=== PATIENT | male | born 1980 ===

== ENCOUNTER 2024-03-13 13:17 | Emergency (ER) | payer OTHER, BC, SELFPAY ==
[2024-03-13 13:24] VITALS: BP 136/86; PULSE 88; RESP 19; TEMP 36.6; O2SAT 98; BMI 26.3
--- NOTE | 2024-03-13 13:25 | ED.ANIMALBIT ---
HPI - Animal Bite General Chief Complaint: Animal Bite Stated Complaint: dog bite at work Time Seen by Provider: 03/13/24 15:46 Source: patient Mode of arrival: ambulatory Limitations: no limitations History of Present Illness ED Provider: MIGUEL MORENO PA-C HPI narrative: 43 year old gsrvx-kfzv-vakdcqas male with no significant pmhx presents to the ED today for evaluation of dog bite to his right hand sustained yesterday. 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 While at and individuals home yesterday, the individuals dog ran up to him and bit his right hand. The individual states that the dog is up-to-date on vaccinations however patient is not sure if that is true. He was evaluated at urgent care today for bite. There, his tetanus was updated and he was started on antibiotics (Augmentin). He was advised to come to the emergency department today to receive his rabies series. At present, he does not endorse any pain to his right hand. Denies fevers, chills, numbness/tingling/weakness of the right hand. No further complaints. Related Data Allergies Allergy/AdvReac Type Severity Reaction Status Date / Time No Known Allergies Allergy Verified 03/13/24 13:26 Review of Systems Review of Systems: Yes all other systems are reviewed and are negative PMFSH Past Medical History Attestation statement: The following information was validated with the patient. Source: old records reviewed and nursing notes reviewed Social History Social History Advance Directives: No Advance Directives Information Provided: No Do you have a plan to hurt others: No Plan Physical Exam ED Vital Signs: Vital Signs - 24 hr 03/13/24 13:24 03/13/24 17:09 Temperature 98 F 97.9 F Pulse Rate 88 84 Respiratory Rate 19 18 Blood Pressure 136/86 134/78 Pulse Oximetry 98 98 Oxygen Delivery Method Room Air BMI result Body Mass Index 26.3 Vital signs stable General: Well appearing, in no acute distress. Skin: Warm, dry, intact. No rashes or lesions. Head: Normocephalic, atraumatic. EENT: Hearing is intact b/l. Conjunctiva clear. PERRLA. EOM intact. Moist mucous membranes.? Cardiac: Chest wall symmetric. RRR Lungs: Normal respiratory effort without accessory muscle use. CTA bilaterally Back: No midline spinous or paraspinal tenderness. No step off deformity. Ext: +small puncture wound noted to the ulnar aspect of the right hand. There is no surrounding erythema. No drainage. No warmth. No streaking. No tenderness to palpation over the puncture wound. He has full ROM intact to right wrist and all digits on right hand. 2+ radial and ulnar pulse intact. Neuro: AOx3. Normal speech. Ambulating with steady gait. Psych: Appropriate mood and affect. Responds appropriately to questions. Course Course Course Narrative: This is a rapid medical exam. Deferred additional HPI, ROS, PE to primary provider. 43 yo male with history of anxiety, right hand dominant here with dog bite to right hand which occurred yesterday. Did receive tetanus immunization, and has been taking augmentin since yesterday. Sent from for rabies series. GUY Lugo APRN Medications Administered Discontinued Medications Generic Name Dose Route Start Last Admin Trade Name Freq PRN Reason Stop Dose Admin Rabies Immune Globulin 1,480 unit 03/13/24 15:46 03/13/24 16:38 Rabies Immune Globulin/Pf 900 Unit/3 Ml Vial 20 unit/kg (1480 unit) 03/13/24 15:47 1,480 unit IM Administration ONCE ONE Rabies Vaccine 1 ml 03/13/24 15:46 03/13/24 16:36 Rabies Vaccine (Pcec)/Pf 1 Ml Vial IM 03/13/24 15:47 1 ml .ONCE ONE Administration Medical Decision Making Medical Decision Making [facility] Narrative: 43 year old hzaos-pbhe-cpprhevc male with no significant pmhx presents to the ED today for evaluation of dog bite to his right hand sustained yesterday. Vital signs stable. Afebrile. He is nontoxic-appearing and in no acute distress. On exam, there is a small puncture wound noted to the ulnar aspect of the right hand. There is no surrounding erythema. No drainage. No warmth. No streaking. No tenderness to palpation over the puncture wound. He has full ROM intact to right wrist and all digits on right hand. 2+ radial and ulnar pulse intact. Differential diagnosis includes dog bite, laceration, abrasion. I do not have concern for retained foreign body, fracture, septic joint, lymphangitis, abscess. X-rays are not warranted at this time. The puncture wound was adequately cleaned with saline and iodine. He received his rabies vaccine and immunoglobulin today. He will be following up with the infusion center outpatient for subsequent vaccines. ED supervisor harvesting informed and infusion center will be notified. I informed patient to continue Augmentin. His tetanus was updated today at urgent care. Patient has remained stable throughout ED visit today. Discussed worrisome signs and symptoms and when to return to the ED. All questions answered at this time. Patient is agreeable with disposition and stable for discharge. Differential Diagnosis Differential Diagnoses: The differential diagnosis associated with the presentation includes As above Admission/Observation Not indicated External Record Review External record reviewed: Inpatient record Prescription Management I considered prescription management with: Pain Medication and Antibiotic (Augmentin) Social Determinants Patient?s care significantly limited by Social Determinants of Health including: Other Social Determinant of Health Critical Care Time Critical Care Time Critical Care Time: No Discharge Plan Discharge Clinical Impression: Dog bite of right hand Qualifiers: Encounter type: initial encounter Qualified Code(s): S61.451A - Open bite of right hand, initial encounter Patient Disposition: Home, Self-Care Instructions: Animal Bite (ED), Rabies (ED) Additional Instructions: You were evaluated in the ED today following a dog bite to your right hand. You were prescribed Augmentin at urgent care. Take this as prescribed. Do not skip any doses or stop taking this early. Your tetanus was updated at urgent care. You were also provided with a rabies immunoglobulin and rabies vaccine in the ED. As discussed, you need to follow up with the infusion center for further rabies vaccinations. They will be reaching out to you to schedule these appointments. Please return to the ED with any new or worsening symptoms. In the case of an emergency call 114. Rabies follow up with [place] [facility]: Upon discharge from the ED today, you will be contacted by the Infusion Center to schedule your follow up Rabies vaccines. You will need a total of 3 more injections. If for some reason you do not receive a call, please call the Infusion Center directly at [phone]. Follow up with your primary care provider after completion of the vaccine to have a titer drawn to ensure the vaccines effectiveness. Stand Alone Forms: Work/School Release Print Language: Yi
[2024-03-13] MEDS: Rabies Vaccine (PCEC)/PF 1 ML VIAL IM (16:36)
[2024-03-13] MEDS: Rabies Immune Globulin/PF 900 UNIT/3 ML VIAL 1480 UNIT IM (16:38)
[2024-03-13 17:09] VITALS: BP 134/78; PULSE 84; RESP 18; TEMP 36.6; O2SAT 98
--- NOTE | 2024-03-13 22:29 | PC.NURSE ---
This nurse called [employer] after multiple attempts i was able to reach a AOC. The number provided for fax was [phone] the AOC then proceeded to tell this nurse if that didn't work to send it to the following email [email or web address] Fax number did not work so bite report was sent to the email AOC provided and the AOC relayed she would get the bite report form processed Friday.
--- NOTE | 2024-03-13 22:34 | PC.NURSE ---
Pt medicated per MAR patient educated on follow up procedures for receiving next 3 doses of the Rabies vaccine.
--- NOTE | 2024-03-13 22:35 | PC.NURSE ---
PT bit at work by pt's parent dog, pt was a medium sized black fluffy dog breed & name unknown. PT was bit at [address] [place] [address]. 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
== END 2024-03-13 17:20 | disposition home or self-care (01) ==
PROVIDERS: Emergency Provider Emergency Medicine Emergency Medical Services
DX: S61.451A Open bite of right hand, initial encounter (principal); W54.0XXA Bitten by dog, initial encounter; Y93.89 Activity, other specified; Y92.009 Unspecified place in unspecified non-institutional (private) residence as the place of occurrence of the external cause; Y99.0 Civilian activity done for income or pay; Z20.3 Contact with and (suspected) exposure to rabies; Z23 Encounter for immunization
CPT/HCPCS: 90375; 90471; 90675; 96372; 99282; 99284